=== PATIENT | female | born 2000 | race Caucasian/White ===

== ENCOUNTER 2018-06-30 18:06 | Emergency (ER) | payer BC ==
[~2018-06-30] VITALS: Ht 162.6 cm; Wt 81.8 kg
[2018-06-30] MEDS ORDERED: TUSSIONEX PENN115 ML PO (18:57)
[2018-06-30] MEDS ORDERED: TESSALON PERLE100 M1 PO (18:57)
[2018-06-30] MEDS ORDERED: PREDNISONE20 M1 PO (18:57)
[2018-06-30 20:02] VITALS: BP 141/90
== END 2018-06-30 20:02 | disposition home or self-care (01) ==
LOC: ED 18:06
DX: J20.9 Acute bronchitis, unspecified (principal); J00 Acute nasopharyngitis [common cold]; Z79.899 Other long term (current) drug therapy
CPT/HCPCS: J7512